=== PATIENT | male | born 1930 | race Caucasian/White ===

== ENCOUNTER 2018-10-16 11:59 | Emergency (ER) | payer BC, MEDICARE, OTHER ==
[2018-10-16 12:13] LABS: CHLORIDE,CL 101 mmol/L (98-107); SODIUM,NA 140 mmol/L (136-145)
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
== END 2018-10-16 16:46 | disposition home or self-care (01) ==
LOC: LL.ED 11:59
DX: S00.83XA Contusion of other part of head, initial encounter (principal); Z88.1 Allergy status to other antibiotic agents; Z79.82 Long term (current) use of aspirin; Z79.899 Other long term (current) drug therapy; V49.9XXA Car occupant (driver) (passenger) injured in unspecified traffic accident, initial encounter
CPT/HCPCS: 36415; 70450; 71260; 72125; 74177; 80053; 85025; 85610; 85730; 96360; 99291; 99292; G0480; Q9967